=== PATIENT | male | born 1970 | race Caucasian/White ===

== ENCOUNTER 2016-10-30 09:49 | Emergency (ER) | payer SELFPAY ==
[~2016-10-30] VITALS: Ht 170.2 cm; Wt 66.2 kg
--- NOTE | 2016-10-30 10:19 | RAD ---
Right thumb, 3 views, 10/30/2016: History: Laceration There is a soft tissue defect at the tip of the thumb. No underlying fracture or dislocation is identified. IMPRESSION: No acute bony abnormality is detected.
[2016-10-30] MEDS ORDERED: LIDOCAINE 2% 20 ML VIAL. IJ ONE (10:30)
[2016-10-30] MEDS ORDERED: DIPHTH,PERTUSS(ACELL),TET TOX 0.5 ML DISP.SYRIN. VAX IM ONE (10:30)
--- NOTE | 2016-10-30 10:35 | PHYS DOC ---
General Chief Complaint: LACERATION/AVULSION Stated Complaint: FINGER LAC Time Seen by MD: 09:59 Source: patient Exam Limitations: no limitations Problems: History of Present Illness Initial Comments Patient is a 46-year-old male who comes to the ED complaining of right thumb injury. 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 He says the bleeding was very heavy initially however upon ED arrival due to the direct pressure it had slowed somewhat to stay slow flow. He denies any pulsatile bleeding. He complains of severe pain primarily at the dorsal aspect complaining that it feels like his fingernail is continuously being ripped off. He's had some proximal radiation of discomfort up his thumb and into his forearm Tetanus is not up-to-date Patient denies any immunocompromise status does not take blood thinners he smokes cigarettes daily. Onset: just prior to arrival Severity: severe Pain/Injury Location: right thumb Method of Injury: incised Modifying Factors: worse with jarring, worse with movement, improves with pain medication Allergies: Coded Allergies: No Known Drug Allergies (Unverified , 10/30/16) Past Medical History Medical History: no pertinent history Surgical History: noncontributory (back fusion) Social History Smoker: cigarettes Alcohol: none Drugs: none Review of Systems Constitutional: denies chills, denies fever Respiratory: denies cough, denies shortness of breath Cardiovascular: denies chest pain, denies palpitations Gastrointestinal: denies nausea, denies vomiting Musculoskeletal: see HPI Skin: see HPI Psychiatric/Neurological: see HPI Physical Exam General Appearance: WD/WN, moderate distress Neck: non-tender, supple Cardiovascular/Respiratory: normal peripheral pulses, no respiratory distress Back: no CVA tenderness, no vertebral tenderness Hand: normal inspection, non-tender, laceration (distal right thumb amputation extending from the proximal nail bed angulating to the distal aspect of the anterior portion of the digit. Oozing is noted no pulsatile or continuous flowing noted. No foreign bodies wound edges are irregular and the distal portion of the digit is absent. No tendon rupture as range of motion remained unimpaired) Neurologic/Tendon: normal motor functions, normal tendon functions, responds to pain, no evidence tendon injury Psychiatric: alert, oriented x 3 Skin: warm/dry (right thumb as above) Orders, Labs, Meds PATIENT: LEO ROWELL ACCOUNT: [id number] : 1970 LOCATION: ER AGE: 46 SEX: M EXAM STATUS: PRE ER ORD. PHYSICIAN: VIKKI SEGUNDO DO REASON: tablesaw vs distal right thumb PROCEDURE: FINGER(S) RIGHT Right thumb, 3 views, 10/30/2016: History: Laceration There is a soft tissue defect at the tip of the thumb. No underlying fracture or dislocation is identified. IMPRESSION: No acute bony abnormality is detected. DICTATED AND SIGNED BY: GUADALUPE AFRIAS MD DATE: 10/30/16 1016 CC: PCP,LEIGH; VIKKI SEGUNDO DO ~ I spoke with the triage nurse at [facility] twice regarding the patient. Full report of the patient's history and exam today given to the triage nurse. She returned my call after speaking with Dr. Webber. Dr. Webber's instructions are reflected in the departure instructions. Lidocaine began wear off and 10 mg of morphine intramuscularly given for analgesia. Patient received a gram or Rocephin IM as well as tetanus vaccination. The patient is agreeable to the discharge instructions and will follow up as per departure instructions. He agrees not to smoke cigarettes or drink any alcohol until after he sees Dr. Webber. Departure Time of Disposition: 11:27 Disposition: 01 HOME, SELF-CARE Diagnosis: distal right thumb amputation, tobaccoism Condition: STABLE Patient Instructions: Fingertip Injuries and Amputations, Smoking Cessation, Tips For Success, VIS, Tetanus, Diphtheria, and Pertussis (Tdap) - CDC Additional Instructions: No use of right hand until cleared by surgeon. Right hand elevated as much as possible to minimize bleeding and throbbing discomfort. Leave the wound dressing in place, do not remove it. If you do bleed through the dressing simply continue to add gauze as needed. [id number] ibuprofen for baseline discomfort. Prescription: Percocet 7.5 mg quantity 40, cephalexin Take medications with food to avoid abdominal discomfort, nausea, or vomiting. Increase fluid intake and take [id number] stool softeners to avoid opiate- induced constipation. Your scheduled to follow up tomorrow at 3 PM with [facility], Dr. Webber. Upon discharge from the emergency department today please call [phone] and requests/confirm your appointment. Advise the can crimper that arrangements have been made with the triage nurse and you are to follow-up tomorrow at 3 PM. You will need to arrive 15-30 minutes early for your appointment to complete paperwork and be registered into their system. Take your discharge instructions and the CD of your images with you to your appointment. Office address: [address] [place] [address], [address] [place] [address] ([facility]) No tobacco or alcohol until cleared by your surgeon. Return to ED with new or changing symptoms. VIKKI SEGUNDO DO Oct 30, 2016 10:35
[2016-10-30] MEDS ORDERED: LIDOCAINE 1% Multi-Dose 20 ML VIAL. ONE (10:48)
[2016-10-30] MEDS ORDERED: cefTRIAXone IM 1 GM VIAL IM ONE (11:00)
[2016-10-30] MEDS ORDERED: OXYC-327 PO (11:32)
[2016-10-30] MEDS ORDERED: CEPH500C PO (11:32)
[2016-10-30 11:34] VITALS: BP 153/81
[2016-10-30] MEDS ORDERED: MORPHINE SULFATE 10 MG/ML SYRINGE. IM ONE (11:45)
[2016-10-30] MEDS ORDERED: MUPIROCIN 2% TOPICAL OINTMENT 22GM TUBE. TP ONE (12:00)
== END 2016-10-30 12:06 | disposition home or self-care (01) ==
LOC: ER 09:49
DX: S68.011A Complete traumatic metacarpophalangeal amputation of right thumb, initial encounter (principal); F17.210 Nicotine dependence, cigarettes, uncomplicated; W45.8XXA Other foreign body or object entering through skin, initial encounter; Y93.89 Activity, other specified; Y99.8 Other external cause status; Y92.89 Other specified places as the place of occurrence of the external cause
CPT/HCPCS: 73140; 90471; 90715; 96372; 99284; J0696; J2270; J2001